=== PATIENT | male | born 1975 | race Asian ===

== ENCOUNTER 2019-11-13 13:44 | Emergency (ER) | payer OTHER ==
[~2019-11-13] VITALS: Ht 165.1 cm; Wt 65.8 kg
[2019-11-13 13:45] VITALS: BP_SYST 137
== END 2019-11-13 14:54 | disposition home or self-care (01) ==
LOC: SED 13:44
DX: S83.92XA Sprain of unspecified site of left knee, initial encounter (principal); X58.XXXA Exposure to other specified factors, initial encounter; Y93.89 Activity, other specified; Y92.89 Other specified places as the place of occurrence of the external cause; Y99.8 Other external cause status
CPT/HCPCS: 73564; 99283